=== PATIENT | female | born 1970 | race Caucasian/White ===

== ENCOUNTER 2022-12-31 11:40 | Emergency (ER) | payer BC ==
[~2022-12-31] VITALS: Ht 172.7 cm; Wt 64.9 kg
[2022-12-31 14:24] LABS: HEMATOCRIT 39.7 % (36.0-45.00); HEMOGLOBIN 13.8 g/dL (12.0-15.00); MEAN CELL VOLUME 87.8 fL (80.00-100.00); MEAN CORPUSCULAR HEMOGLOBIN 30.6 pg (27.00-32.0); MEAN CORPUSCULAR HGB CONC 34.8 g/dl (32.0-36.0); PLATELET COUNT 229 K/uL (150-450); RED BLOOD COUNT 4.52 M/uL (4.00-6.00); RED CELL DISTRIBUTION WIDTH 13.2 % (11.5-14.5)
== END 2022-12-31 15:26 | disposition home or self-care (01) ==
LOC: ER 11:40
PROVIDERS: General Practice
DX: R50.9 Fever, unspecified (principal); Z20.822 Contact with and (suspected) exposure to COVID-19